=== PATIENT | male | born 1980 | race Hispanic/Latino ===

== ENCOUNTER 2017-12-25 19:12 | Emergency (ER) | payer OTHER, MEDICARE ==
[2017-12-25] MEDS ORDERED: KETOROLAC TROMETHAMINE 60 MG/2 ML VIAL ONE (19:50)
[2017-12-25] MEDS ORDERED: DIAZEPAM 5 MG TABLET ONE (19:51)
== END 2017-12-25 20:12 | disposition home or self-care (01) ==
LOC: EDH 19:12
DX: M62.838 Other muscle spasm (principal); Z98.890 Other specified postprocedural states
CPT/HCPCS: 96372; 99283; J1885